=== PATIENT | male | born 1990 | race Caucasian/White ===

== ENCOUNTER 2016-05-08 18:58 | Emergency (ER) | payer OTHER ==
[~2016-05-08] VITALS: Ht 180.3 cm; Wt 58.7 kg
[~2016-05-08 18:58] MED LIST: FERROUS SULFAT325 MG PO; LIALDA1.2 GM PO; LIDOCAINE20 MG/1 M5 PO
[2016-05-08 19:20] LABS: BILIRUBIN NEGATIVE; BLOOD NEGATIVE; COLOR YELLOW ((YELLOW)); GLUCOSE (STRIP) NEGATIVE; KETONES 5; LEUKOCYTES NEGATIVE; NITRITE NEGATIVE; PROTEIN (STRIP) 30; SPECIFIC GRAVITY 1.021 (1.000-1.030); UROBILINOGEN 0.2 MG/DL (0.2-1.0)
[2016-05-08 19:21] LABS: MCH 28.2 PG (29.0-34.0); MCHC 32.3 G/DL (30.0-36.0); MCV 87.2 FL (86-99); MEAN PLAT.VOLUME 9.5 uM^3 (9.0-12.4); PLATELET COUNT 254 K/uL (156-360); RBC DIS.WIDTH-CV 12.5 % (11.8-14.6); RED BLOOD COUNT 4.93 M/uL (4.00-5.50); WHITE BLOOD COUNT 7.7 K/uL (4.1-10.2)
[2016-05-08 19:30] LABS: CHLORIDE 102 mEq/L (99-109); POTASSIUM 3.7 mEq/L (3.7-5.4); SODIUM 140 mEq/L (136-147)
[2016-05-08 19:32] LABS: GLUCOSE 74 mg/dL (70-99)
[2016-05-08 19:32] LABS: ADD MIUA? NO; UCUL ADDED? NO
[2016-05-08 19:33] LABS: ANION GAP 11 MEQ/L (2-14)
[2016-05-08 19:34] LABS: TOTAL BILIRUBIN 0.4 mg/dL (0.0-1.0)
[2016-05-08 19:35] LABS: ALKALINE PHOSPHATASE 93 IU/L (3-129)
[2016-05-08 19:36] LABS: GFR ESTIMATE (CALCULATED) > 59 mL/min/
[2016-05-08 19:37] LABS: UREA NITROGEN (BUN) 12 mg/dL (9-23)
[2016-05-08] MEDS ORDERED: ZOFRAN ODT4 MG PO (20:14)
[2016-05-08] MEDS ORDERED: ULTRAM50 MG PO (20:14)
[2016-05-08 20:16] VITALS: BP 114/86
== END 2016-05-08 20:32 | disposition home or self-care (01) ==
LOC: EME 18:58
DX: R10.9 Unspecified abdominal pain (principal); Z72.0 Tobacco use
CPT/HCPCS: 74176; 80053; 81003; 85027; 99281; 99284; J1885